=== PATIENT | female | born 1975 | race Caucasian/White ===

== ENCOUNTER 2016-11-14 18:47 | Emergency (ER) | payer BC, OTHER ==
[2016-11-14 18:55] VITALS: BP 151/96; PULSE 86; TEMP 98.5; BMI 32.1
--- NOTE | 2016-11-14 19:20 | PDOC ---
History of Present Illness - General History Source: Patient Exam Limitations: No Limitations - History of Present Illness Initial Comments: 11/14/16 23:03 The patient is a 41 year old female (), with a significant past medical history of IBS, borderline diabetes, and arthritis, who presents to the emergency department complaining of shortness of breath since yesterday morning. The patient reports her shortness of breath is brought on with exertion. She reports her SOB is better at rest and when lying down. Patient reports new onset of chest pain a/w L arm pain last night that progressed until this morning and self resolved this morning. Denies diaphoresis and palpitations. Patient reports she presented to her OB, Dr. Helms yesterday, where she had an US done, which revealed she was 6 weeks . She was SOB at the time, but Dr. Helms advised her to go to the ED if it gets worse. She denies any sore throat, ear pain, fever, chills, headache, or dizziness. Patient reports she has been having vaginal bleeding intermittently as well for the past week. She reports using thin pads, which she changes a few times per day. Denies clots. She denies any uterine contractions, abdominal cramping, dysuria, vaginal discharge, or history of STDs. She reports some nausea and fatigue, but denies any vomiting, diarrhea, or constipation. Allergies: NKDA Past Surgical History: , knee surgery Social History: Non smoker. No ETOH or recreational drug use. 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 <Roxy Duque - Last Filed: 11/15/16 00:09> <Asael Torre - Last Filed: 11/15/16 03:05> - General Chief Complaint: Respiratory Stated Complaint: PCP SENT Time Seen by Provider: 11/14/16 19:19 Past History <Roxy Duque - Last Filed: 11/15/16 00:09> - Past Medical History Diabetes: Yes (BORDERLINE) Other medical history: SPINAL ARTHRITIS - Psycho/Social/Smoking Cessation Hx Anxiety: No Suicidal Ideation: No Smoking History: Never smoked Hx Alcohol Use: No Drug/Substance Use Hx: No Substance Use Type: None <Asael Torre - Last Filed: 11/15/16 03:05> - Past Medical History Allergies/Adverse Reactions: Allergies Allergy/AdvReac Type Severity Reaction Status Date / Time No Known Allergies Allergy Verified 11/14/16 18:55 Home Medications: Ambulatory Orders NK [No Known Home Medication] 11/14/16 Review of Systems - Review of Systems Able to Perform ROS?: Yes Comments:: 11/14/16 23:03 GENERAL/CONSTITUTIONAL: Yes: +fatigue. No fever or chills. No weakness. HEAD, EYES, EARS, NOSE AND THROAT: No change in vision. No ear pain or discharge. No sore throat. CARDIOVASCULAR: Yes: +chest pain/tightness, +shortness of breath. RESPIRATORY: Yes: +cough, +dyspnea, +dyspnea on exertion. No orthopnea, wheezing , or hemoptysis. GASTROINTESTINAL: Yes: +nausea, No pain. No vomiting, diarrhea or constipation. GENITOURINARY: Yes: +vaginal bleeding. No vaginal discharge, dysuria, frequency , or change in urination. MUSCULOSKELETAL: No joint or muscle swelling or pain. No neck pain. SKIN: No rash NEUROLOGIC: No headache, vertigo, loss of consciousness, or change in strength/ sensation. ENDOCRINE: No increased thirst. No abnormal weight change. HEMATOLOGIC/LYMPHATIC: No anemia, easy bleeding, or history of blood clots. ALLERGIC/IMMUNOLOGIC: No hives or skin allergy. <Roxy Duque - Last Filed: 11/15/16 00:09> *Physical Exam - Vital Signs Last Vital Signs Temp Pulse Resp BP Pulse Ox 98.5 F 86 20 151/96 96 11/14/16 18:51 11/14/16 18:51 11/14/16 18:51 11/14/16 18:51 11/14/16 18:51 - Physical Exam Comments: 11/14/16 23:03 GENERAL: Awake, alert, and fully oriented, in no acute distress HEAD: No signs of trauma EYES: PERRLA, EOMI, sclera anicteric, conjunctiva clear ENT: Auricles normal inspection, hearing grossly normal, nares patent, oropharynx clear without exudates. Moist mucosa NECK: Normal ROM, supple, no lymphadenopathy, JVD, or masses LUNGS: Breath sounds equal, clear to auscultation bilaterally. No wheezes, and no crackles HEART: Regular rate and rhythm, normal S1 and S2, no murmurs, rubs or gallops ABDOMEN: Soft, nontender, normoactive bowel sounds. No guarding, no rebound. No masses EXTREMITIES: Normal range of motion, no edema. No clubbing or cyanosis. No cords, erythema, or tenderness NEUROLOGICAL: Normal speech, cranial nerves intact, negative pronator drift, 5/ 5 strength in all 4 extremities, normal sensation to light touch in all 4 extremities, normal cerebellar exam, normal gait, normal reflexes and tone SKIN: Warm, Dry, normal turgor, no rashes or lesions noted. 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 <Roxy Duque - Last Filed: 11/15/16 00:09> ED Treatment Course - LABORATORY CBC & Chemistry Diagram: 11/14/16 20:10 11/14/16 20:10 - ADDITIONAL ORDERS Additional order review: Laboratory Results 11/14/16 11/14/16 11/14/16 20:10 20:10 20:10 Sodium 138 Potassium 3.8 Chloride 103 Carbon Dioxide 27 Anion Gap 8 BUN 16 Creatinine 0.7 Creat Clearance w eGFR > 60 Random Glucose 115 H D Calcium 9.6 Magnesium 2.0 Total Bilirubin 0.3 D AST 15 ALT 25 D Alkaline Phosphatase 64 Troponin I < 0.02 Total Protein 7.6 Albumin 3.5 Beta HCG, Quant 76734.7 Urine Color Yellow Urine Appearance Slcloudy Urine pH 5.0 Urine Protein Negative Urine Glucose (UA) Negative Urine Ketones Negative Urine Blood 3+ H Urine Nitrite Negative Urine Bilirubin Negative Urine Urobilinogen Negative Ur Leukocyte Esterase Negative Urine RBC 5 Urine WBC 2 Ur Epithelial Cells Rare Urine Bacteria Rare Hyaline Casts 3 Urine Mucus Many Urine HCG, Qual Blood Type A POSITIVE 11/14/16 20:10 Sodium Potassium Chloride Carbon Dioxide Anion Gap BUN Creatinine Creat Clearance w eGFR Random Glucose Calcium Magnesium Total Bilirubin AST ALT Alkaline Phosphatase Troponin I Total Protein Albumin Beta HCG, Quant Urine Color Urine Appearance Urine pH Urine Protein Urine Glucose (UA) Urine Ketones Urine Blood Urine Nitrite Urine Bilirubin Urine Urobilinogen Ur Leukocyte Esterase Urine RBC Urine WBC Ur Epithelial Cells Urine Bacteria Hyaline Casts Urine Mucus Urine HCG, Qual Positive Blood Type 11/14/16 20:10 RBC 4.69 MCV 84.0 MCHC 33.3 RDW 15.5 MPV 8.8 Neutrophils % 70.9 Lymphocytes % 21.4 D Monocytes % 5.5 Eosinophils % 1.1 D Basophils % 1.1 D - RADIOLOGY Radiograph Interpretation: 11/14/16 23:42 EXAM: Pelvic US INTERPRETED BY: Dr. Soto REVIEWED BY: Dr. Torre IMPRESSION: Pelvic duplex: There is normal arterial and venous flow in both ovaries. Early IUP prior to the visualization of cardiac motion. Recommend followup sonography to ensure viability EXAM: CXR INTERPRETED BY: Dr. Soto REVIEWED BY: Dr. Torre IMPRESSION: Normal chest. <Roxy Duque - Last Filed: 11/15/16 00:09> - LABORATORY CBC & Chemistry Diagram: 11/14/16 20:10 11/14/16 20:10 <Asael Torre - Last Filed: 11/15/16 03:05> Medical Decision Making - Medical Decision Making 11/14/16 21:16 41-year-old female presents with shortness of breath and CP since yesterday. Vitals are unremarkable and physical exam is unremarkable. Differential includes PE since pt is and having chest pain and SOB. Anemia also a consideration giving her vaginal bleeding for the last week. Pneumonia a possiblity as well although unlikely as pt is afebrile with no cough. Reactive airway disease also on differential but unlikely given clear lungs and no hx of asthma. -labs -CXR -consider CT PE if CXR negative -observe 11/14/16 22:59 US with 6w+2d with no FHR consistent with normal preg too early for cardiac development vs spont . Pt had beta HCG checked yesterday, will have it rechecked next week when she follows up with her OB 11/15/16 01:02 Labs and CXR unremarkable. Continues to feel SOB but with stable vitals (now RR 18, sat 98% RA). PE remains on the differential and I offered patient a CT study to evaluate for PE. Given the risks of the contrast and radiation to the pt and the , she does not want to get the study. The patient is clinically sober, free from distracting injury, appears to have intact insight and judgment and reason and in my opinion has the capacity to make decisions. The patient presents with SOB and CP. I have explained that I am concerned that this may represent a pulmonary embolism (PE); they have verbalized an understanding of my concerns. I have told the patient that while their labs and chest XR were normal, they could still have PE. I have discussed the need for a CTA of the chest to get more information about potential causes of the patients SOB and CP. I have told the patient that if they leave and have a pulmonary embolism, they could get much worse, could become critically ill, and could possibly become disabled or . I have offered to give the patient pain medication. I have asked them to stay in the hospital for serial exams and monitoring. I have offered her to have a LE doppler ultrasound instead of a CTA of the chest. I have discussed these concerns with the patient s who is at the bedside and he is unable to convince her to stay for further evaluation. The patient is not willing to undergo a CTA of the chest. She is unwilling to stay overnight for monitoring. She is refusing any further care and is leaving against medical advice. I am unable to convince the patient to stay, I have asked them to return as soon as possible to complete their evaluation. I have answered all their questions. <Asael Torre - Last Filed: 11/15/16 03:05> *DC/Admit/Observation/Transfer - Attestations Scribe Attestion: 11/14/16 22:09 Documentation prepared by Roxy Duque, acting as medical record administrator for Asael Torre MD. <Roxy Duque - Last Filed: 11/15/16 00:09> - Attestations Physician Attestion: 11/15/16 03:04 I, Dr. Asael Torre MD, attest that this document has been prepared under my direction and personally reviewed by me in its entirety. I further attest, that it accurately reflects all work, treatment, procedures and medical decision -making performed by me. <Asael Torre - Last Filed: 11/15/16 03:05> Diagnosis at time of Disposition: Shortness of Breath - Discharge Dispostion Disposition: AGAINST MEDICAL ADVICE Condition at time of disposition: Fair - Referrals Referrals: Corinna Kelley [Primary Care Provider] - - Patient Instructions Additional Instructions: Please follow up with your OB doctor within 1-2 days. Also follow up with your PMD within 1-2 days. You are leaving the emergency department today against medical advice. This puts you at risk of not being treated for or diagnosed with a potentially dangerous diagnosis such as pulmonary embolism, demise , or anemia. By leaving against medical advice, you are at risk of permanent disability, , or worsening symptoms. If you change your mind regarding the CT scan to rule out a pulmonary embolism or have any concerns, please return to the Emergency Department immediately.
[2016-11-14 20:38] LABS: BASOPHIL 1.1 % (0-2.0); EOSINOPHIL 1.1 % (0-4.5); MCHC 33.3 g/dl (32.0-36.0); MEAN PLT VOLUME 8.8 fl (7.5-11.1); NEUTROPHILS 70.9 % (42.8-82.8); PLATELET COUNT 350 K/MM3 (134-434); RDW 15.5 % (11.6-15.6); WHITE BLOOD COUNT 12.3 K/mm3 (4.0-10.0)
[2016-11-14 20:40] LABS: URINE APPEARANCE SLCLOUDY; URINE BILIRUBIN NEGATIVE (NEGATIVE); URINE BLOOD 3+ (NEGATIVE); URINE COLOR YELLOW; URINE GLUCOSE (UA) NEGATIVE (NEGATIVE); URINE KETONE NEGATIVE (NEGATIVE); URINE LEUK ESTERASE NEGATIVE (NEGATIVE); URINE NITRITE NEGATIVE (NEGATIVE); URINE PROTEIN NEGATIVE (NEGATIVE); URINE UROBILINOGEN NEGATIVE mg/dL (0.2-1.0)
[2016-11-14 20:44] LABS: URINE BACTERIA RARE /hpf (NONE SEEN); URINE HYALINE CAST 3 /lpf; URINE MUCUS MANY; URINE RBC 5 /hpf (0-3); URINE WBC 2 /hpf (3-5)
[2016-11-14 21:28] LABS: ALBUMIN 3.5 g/dl (3.4-5.0); ANION GAP 8 (8-16); CALCIUM 9.6 mg/dL (8.5-10.1); CO2 27 mmol/L (21-32); CREATININE 0.7 mg/dL (0.55-1.02); GLUCOSE,RANDOM 115 mg/dL (74-106); SGOT/AST 15 U/L (15-37); SGPT/ALT 25 U/L (12-78)
[2016-11-14 21:44] LABS: ALK PHOS 64 U/L (45-117); BILIRUBIN,TOTAL 0.3 mg/dL (0.2-1.0); TOT PROT 7.6 g/dl (6.4-8.2); TROPONIN I < 0.02 ng/ml (0.00-0.05)
--- NOTE | 2016-11-17 12:20 | EKG ---
Test Reason : Blood Pressure : / mmHG Vent. Rate : 084 BPM Atrial Rate : 084 BPM P-R Int : 154 ms QRS Dur : 080 ms QT Int : 368 ms P-R-T Axes : 066 066 028 degrees QTc Int : 434 ms NORMAL SINUS RHYTHM BASELINE ARTIFACTS \NONSPECIFIC ST ABNORMALITIES NO PREVIOUS ECGS AVAILABLE REPEAT EKG IF CLINICALLY INDICATED Confirmed by ALDA STEVENSON MD ([id number]) on 11/17/2016 12:20:44 PM Referred By: Confirmed By:ALDA STEVENSON MD
== END 2016-11-15 00:22 | disposition left against medical advice (07) ==
LOC: JER 18:47
DX: O26.891 Other specified pregnancy related conditions, first trimester (principal); R06.02 Shortness of breath; Z3A.01 Less than 8 weeks gestation of pregnancy
CPT/HCPCS: 36415; 71020-TC; 76817-TC; 80053; 81003; 81015; 83735; 84484; 84702; 84703; 85025; 86850; 86900; 86901; 87077; 87086; 93005; 93010; 99284-25

== ENCOUNTER 2016-11-17 08:30 | Day surgery (SDC) | payer BC, OTHER ==
[2016-11-16 15:31] VITALS: BMI 34.9
--- NOTE | 2016-11-16 19:46 | HP ---
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 No: AFIB, Aneurysm, Aortic Insufficiency, Aortic Stenosis, CAD, CHF, Deep Vein Thrombosis, HTN, Hyperlipdemia, IN, Mitral Insufficiency, Mitral Stenosis, Pulmonary Hypertension, Other Pulmonary: Yes: Asthma. No: Bronchitis, Cancer, COPD, O2 Dependent, Pneumonia, Previously Intubated, Pulmonary Embolus, Pulmonary Fibrosis, Sleep Apnea, Other Gastrointestinal: Yes: Irritable Bowel Disease. No: Ascites, Cancer, Constipation, Crohn's Disease, Diverticulitis, Diverticulosis, Esophageal Varices, Gastritis, GERD, GI Bleed, Hemorrhoids, Hiatal Hernia, Inflamatory Bowel Disease, Pancreatitis, Peptic Ulcer Disease, Ulcerative Colitis, Other Hepatobiliary: No: Cirrhosis, Cholelithiasis, Cholecystitis, Choledocholithiasis , Hepatitis A, Hepatitis B, Hepatitis C, Other Renal/: No: Renal Failure, Renal Inusuff, BPH, Cancer, Hematuria, Hemodialysis , Neurogenic Bladder, Renal Calculi, UTI, Other Reproductive: No: Ectopic , Endometriosis, Fibroids, PID, Polycystic Ovary Syndrome, Postmenopausal, Other ...LMP: 08/10/16 ...: Yes ...: 4 ...Para: 1 Heme/Onc: No: Anemia, B12 Deficiency, Bleeding Disorder, Cancer, Current Chemotherapy, Current Radiation Therapy, Hemochromatosis, Hypercoaguable State, Myeloproliferative Synd, Sickle Cell Disease, Sickle Cell Trait, Thrombocytopenia, Other Infectious Disease: No: AIDS, C-Diff, Herpes Zoster, HIV, MRSA, STD's, Tuberculosis, VREF, Other Rheumatology: No: Fibromyalgia, Gout, Lupus, Rheumatoid Arthritis, Sarcoidosis, Vasculitis, Other ENT: No: Allergic Rhinitis, Sinusitis, Other Endocrine: No: Lucho's Disease, Perkins's Disease, Diabetes Insipidus, Diabetes Mellitus, Hyperparathyroidism, Hyperthyroidism, Hypothyroidism, Osteopenia, SIADH, Other Dermatology: Yes: Eczema Additional Medical History: previous c/s - Current Medications Current Medications: Home Medications Medication Instructions Recorded NK [No Known Home Medication] 11/14/16 NK [No Known Home Medication] 11/16/16 Satellite Physical Exam - Physical Examination General Appearance: Well Nourished, Well Developed, Alert & Oriented x3 ENT: Clear, No Discharge, No masses Lung: Clear to auscultation Heart: Regular rate & rhythm, Normal S1, Normal S2 Breasts: Soft, Non-Tender, No masses bilaterally Abdomen: Soft, No tenderness, No CVA Extremities: No edema, No tenderness/swelling Pelvic Exam: Within normal limits External Genitalia, Within normal limits Vagina, Within normal limits Cervix, Within normal limits [place], Other Uterus (enlarged) Neurological: Intact, Alert, Oriented Satellite Impression/Plan - Impression/Plan Impression: missed Operative Procedure: suction d/c Date to be Performed: 11/17/16
[2016-11-17] MEDS ORDERED: MIDAZOLAM HCL 2 MG/2 ML SINGLE DOSE VIAL ONE (09:32)
[2016-11-17] MEDS ORDERED: PROPOFOL 20 ML ONE ×3 (09:36)
[2016-11-17] MEDS ORDERED: ceFAZolin SODIUM 1 GM VIAL ONE (09:40)
[2016-11-17] MEDS ORDERED: ceFAZolin SODIUM 1 GM VIAL IVPB ONE (09:42)
[2016-11-17] MEDS ORDERED: DEXAMETHASONE SOD PHOSPHATE 4 MG/1 ML VIAL ONE (09:46)
[2016-11-17] MEDS ORDERED: KETOROLAC TROMETHAMINE 30 MG/1 ML VIAL ONE (09:51)
[2016-11-17 10:44] VITALS: TEMP 97.8
[2016-11-17] MEDS ORDERED: ONDANSETRON 4 MG/2 ML VIAL IVPUSH PRN (11:36)
[2016-11-17] MEDS ORDERED: ACETAMINOPHEN 325 MG TABLET (FP) PO PRN (11:36)
[2016-11-17] MEDS ORDERED: oxyCODONE HCL 5 MG TABLET PO PRN (11:36)
--- NOTE | 2016-11-17 11:41 | OP ---
DATE OF OPERATION: 11/17/2016 PREOPERATIVE DIAGNOSIS: Missed . POSTOPERATIVE DIAGNOSIS: Missed . OPERATIVE PROCEDURE: Suction dilatation and curettage. SURGEON: Edmundo Mccracken MD ESTIMATED BLOOD LOSS: 10 mL. DESCRIPTION OF PROCEDURE: The patient was brought to the operating room, placed in the supine position, given anesthesia by Dr. Van, placed in the lithotomy position. The patient was given Ancef prophylactically, intravenously. The patient was examined after she was prepped and draped for a suction dilatation and curettage. She was examined. The uterus was noted to be enlarged 6 to 8 weeks size. Adnexa negative. The anterior lip of the cervix was grasped with a tenaculum. The cervix was dilated with Tejeda dilators. A No. 7 curved curette was used for suction dilatation and curettage. Products of conception were obtained. The patient tolerated the procedure well. The patient did well. Her estimated blood loss was approximately 10 mL. The tenaculum was released from the cervix, and the patient was then transferred to the recovery room in good condition with stable vital signs and good hemostasis. John [id number]
[2016-11-17] MEDS ORDERED: LACTATED RINGERS SOLUTION 1,000 ML IV SCH (11:45)
[2016-11-17 13:16] VITALS: BP 125/67; PULSE 84
== END 2016-11-17 13:16 | disposition home or self-care (01) ==
LOC: JASU-SURG 08:30 → EDUNIT# 09:00 → JASU-SURG 13:16
PROVIDERS: ATTEND Obstetrics & Gynecology
PROC: 10D17ZZ Extraction of Products of Conception, Retained, Via Natural or Artificial Opening (ICD-10-PCS; principal; 2016-11-17 09:00)
DX: O02.1 Missed abortion (principal)
CPT/HCPCS: 88305-TC; 94760